=== PATIENT | female | born 1960 | race Caucasian/White ===

== ENCOUNTER 2019-10-02 10:26 | Day surgery (SDC) | payer BC ==
[2019-09-30 14:48] VITALS: BMI 43.0
[~2019-10-02 10:26] MED LIST: LACTATED RINGERS 1,000 ML IV SCH
[2019-10-02 10:58] VITALS: TEMP 97.6
[2019-10-02] MEDS ORDERED: LIDOCAINE 1% (10MG/ML) FOR IV START INTRADERMA ONE (11:08)
[2019-10-02] MEDS ORDERED: PROPOFOL 10 MG/ML 20 ML VIAL IV ONE (11:23)
--- NOTE | 2019-10-02 11:46 | P.PCN ---
Date of Procedure: 10/02/19 Procedure(s) Performed: Brief history: Patient is a pleasant s 5-year-old white female, cheduled for an elective upper endoscopy as well as colonoscopy as a part of evaluation of epigastric pain and abdominal pain for the last 4 months duration. She complains of nausea but no emesis. Has chronic diarrhea with bowel movements and rhythm 5-6 a day which are loose to watery in consistency. Procedure performed: Esophagogastroduodenoscopy with biopsy Colonoscopy with biopsy Preoperative diagnosis: Epigastric pain Lower abdominal pain and chronic diarrhea Anesthesia: MAC Procedure: After informed consent was obtained from the patient was brought into the endoscopy unit and IV sedation was administered by anesthesia under continuous monitoring. Initially upper endoscopy was done. The Olympus GF 160 video endoscope was inserted inserted into the mouth and esophagus intubated without any difficulty and was gradually advanced into the stomach and duodenum and carefully examined. The bulb and second part of the duodenum appeared normal. Biopsies were done from the duodenum to rule out celiac disease. The scope was then withdrawn into the stomach adequately insufflated with air and upon careful examination the antrum had mild gastritis and biopsies were done from this area. The body, cardia and fundus appeared normal. The scope was then withdrawn into the esophagus. The GE junction was located at 40 cm to the incisors. It appeared regular with no erythema erosions or ulcerations. Rest of the esophagus appeared normal. Patient tolerated the procedure well. At this time the patient continued to remain sedation. Initial digital rectal examination was normal. Olympus CF 160 video colonoscope was then inserted into the rectum and gradually advanced to the cecum without any difficulty. Careful examination was performed as the scope was gradually being withdrawn. The prep was excellent. The cecum, ascending colon, transverse colon, descending colon, sigmoid colon and rectum appeared normal. Scattered left-sided diverticulosis seen. Random biopsies were done from ascending and descending colon to rule out microscopic/Collagenous colitis Retroflexion was performed in the rectum and no lesions were noted. Patient tolerated the procedure well. Impression: 1. Upper endoscopy revealed mild antral gastritis and esophagitis or peptic ulcer disease 2. Colonoscopy revealed scattered sigmoid diverticulosis but no evidence of colitis or colorectal neoplasia Recommendations: Findings of this examination were discussed with the patient as well as her family. She was advised to follow with the biopsy results.. She was advised to follow up in office in 2-3 weeks.
[2019-10-02 11:52] VITALS: RESP 16
[2019-10-02 12:13] VITALS: BP 121/77
[2019-10-02 12:38] VITALS: PULSE 67
== END 2019-10-02 12:47 | disposition home or self-care (01) ==
LOC: ORWHC2ENDO 10:26
PROVIDERS: ATTEND Internal Medicine Gastroenterology
DX: K52.9 Noninfective gastroenteritis and colitis, unspecified (principal); K57.30 Diverticulosis of large intestine without perforation or abscess without bleeding; K29.50 Unspecified chronic gastritis without bleeding; I10 Essential (primary) hypertension; E07.9 Disorder of thyroid, unspecified; K21.0 Gastro-esophageal reflux disease with esophagitis; M79.7 Fibromyalgia; M06.9 Rheumatoid arthritis, unspecified; Z79.890 Hormone replacement therapy; Z79.899 Other long term (current) drug therapy; Z91.040 Latex allergy status
CPT/HCPCS: 88305; 45380; 43239; J2704